=== PATIENT | female | born 1980 | race Two or more races ===

== ENCOUNTER 2022-12-06 09:23 | Emergency (ER) | payer SELFPAY ==
[~2022-12-06] VITALS: Ht 167.6 cm; Wt 118.0 kg
[2022-12-06] MEDS ORDERED: SODIUM CHLORIDE 0.9% 1,000 ML IV ONE ×2 (09:45)
[2022-12-06] MEDS ORDERED: ACETAMINOPHEN 650 mg PER 20.3 mL UD PO ONE (09:45)
[2022-12-06 10:03] LABS: Eosinophils # (auto) 0 10 ^3/uL (0-0.8); Eosinophils % (auto) 0.1 % (0.0-7.0); Hematocrit 44.8 % (36.0-46.0); Hemoglobin 15.2 g/dL (12.2-16.2); Mean Corpuscular Hgb Conc. 33.9 g/dL (32.0-36.0); Monocytes # (auto) 0.8 10 ^3/uL (0-1.3); Nucleated Red Blood Cells % 0.1 %
[2022-12-06 10:05] LABS: Basophils # (auto) 0.2 10 ^3/uL (0-0.2); Basophils % (auto) 0.7 % (0.0-2.0); Lymphocytes # (auto) 2.5 10 ^3/uL (0.4-5.4); Lymphocytes % (auto) 11.4 % (10.0-50.0); Mean Corpuscular Hemoglobin 29.7 pg (28.0-32.0); Mean Corpuscular Volume 87.7 fL (80.0-100.0); Monocytes % (auto) 3.8 % (0.0-12.0); Neutrophils # (auto) 18.6 10 ^3/uL (1.6-8.6); Red Blood Cells 5.11 10^6/uL (4.0-5.20); Red Cell Distribution Width 13.8 % (11.8-14.3); White Blood Cell 22.2 10^3/uL (4.4-10.8)
[2022-12-06 10:10] LABS: Calcium 9.3 mg/dL (8.5-10.1); Potassium 3.3 mmol/L (3.5-5.1)
[2022-12-06 10:17] LABS: BUN/Creatinine Ratio 14.1 (10.0-20.0); Bilirubin, Total 0.8 mg/dL (0.2-1.0); Total Protein 7.9 g/dL (6.4-8.2)
[2022-12-06 10:35] LABS: Urine Bacteria NONE SEEN /hpf (None Seen); Urine Blood 3+ /uL (Negative); Urine Mucus FEW (None Seen); Urine Specific Gravity 1.017 (1.001-1.035); Urine WBC 5 /hpf (0 - 5)
[2022-12-06] MEDS ORDERED: cefTRIAXone 1GM/50ML D5W 50 ML IV ONE (10:45)
[2022-12-06] MEDS ORDERED: ACETAMINOPHEN 325 MG TAB PO ONE (13:15)
[2022-12-06] MEDS ORDERED: CEPH250C PO (13:49)
[2022-12-06 15:00] VITALS: BP 144/109
== END 2022-12-06 15:08 | disposition home or self-care (01) ==
LOC: ER 09:23
DX: O00.80 Other ectopic pregnancy without intrauterine pregnancy (principal); I10 Essential (primary) hypertension; Z98.890 Other specified postprocedural states; Z90.49 Acquired absence of other specified parts of digestive tract
CPT/HCPCS: 36415; 76705; 76775; 76801; 76817; 80053; 81001; 81025; 84702; 85025; 96361; 96365; 99285; J0696; J7030